=== PATIENT | female | born 1935 | race Caucasian/White ===

== ENCOUNTER 2021-05-30 13:17 | Observation (INO) ==
[2021-05-30] MEDS ORDERED: SODIUM CHLORIDE 0.9% 1,000 ML IV STA (14:10)
[2021-05-30 15:35] LABS: Basophils % 0.3 % (0.0-0.8); Eosinophils # 0.1 10*3/uL (0.0-0.87); Eosinophils % 1.4 % (0.00-10.9); Immature Granulocytes % 0.3 %; Immature Granulocytes Absolute 0.02 #; Lymphocytes # 2.4 10*3/uL (1.4-4.0); Lymphocytes % 33.9 % (21.3-54.2); Mean Corpuscular HGB Conc 31.4 GM/DL (32-36); Mean Platelet Volume 8.8 FL (9.6-12.0); Monocytes % 8.1 % (1.7-12.7); Platelet Count 242 T/CUMM (130-400); Red Blood Count 3.43 MC/CUMM (3.8-5.5); Red Cell Distribution Width 13.5 % (9.3-17.3); White Blood Count 7.1 T/CUMM (4-12)
[2021-05-30 15:50] LABS: Alanine Aminotransferase 19 U/L (13-56); Albumin 3.5 G/DL (3.4-5.0); Alkaline Phosphatase 55 U/L (45-117); Aspartate Amino Transferase 16 U/L (0-37); Bilirubin,Total < 0.39 MG/DL (0.20-1.00); Blood Urea Nitrogen 32 MG/DL (7-18); Calcium 9.2 MG/DL (8.5-10.1); Carbon Dioxide 24 MMOL/L (21-32); Estimated Glom Filtration Rate 34 ML/MIN; Glucose 99 MG/DL (74-106); Osmolality,Calculated 287.3 MOS/KG (273-304); Sodium 141 MMOL/L (136-145); Total Protein 7.1 G/DL (6.4-8.2)
[2021-05-30 18:14] LABS: Bilirubin,Urine Negative (Negative); Blood, Urine Negative (Negative); Glucose,Urine (UA) Negative (Negative); Ketones,Urine Negative (Negative); Nitrite,Urine Negative (Negative); Protein,Urine Negative; Urine Appearance Clear (Clear); Urine Color Straw (Yellow); Urine Urobilinogen 0.2 EU/DL (0.2-1.0)
[2021-05-30 18:15] LABS: Mucus,Urine Occasional /LPF (Occasional); Squamous Epithelial Cell,Urine Few /HPF (0-10)
[2021-05-30] MEDS ORDERED: DEXTROSE 50% 25 GM/50 ML VIAL IV PRN ×2 (19:50)
[2021-05-30] MEDS ORDERED: GLUCAGON 1 MG VIAL IM PRN (19:50)
[2021-05-30] MEDS ORDERED: MAGNESIUM HYDROXIDE SUSP 30 ML UDCUP PO PRN (20:26)
[2021-05-30] MEDS ORDERED: ZIPRASIDONE 20 MG CAPSULE PO PRN (20:26)
[2021-05-30] MEDS ORDERED: hydrALAZINE 20 MG/1 ML VIAL IV PRN (20:28)
[2021-05-30] MEDS: traMADol 50 MG TABLET PO PRN (22:25)
[2021-05-30] MEDS: INSULIN REGULAR 100 UNIT/ML SUBCUT SCH (23:48)
[2021-05-30] MEDS: ASPIRIN 325 MG TABLET PO SCH (23:55)
[2021-05-30] MEDS: ENOXAPARIN 40 MG/0.4 ML SYRINGE SUBCUT SCH (23:56)
[2021-05-30] MEDS: rOPINIRole 1 MG TABLET PO SCH (23:58)
[2021-05-31 05:30] LABS: Basophils % 0.3 % (0.0-0.8); Eosinophils % 0.3 % (0.00-10.9); Hematocrit 36.7 VOL% (35.7-47.0); Hemoglobin 11.7 GM/DL (12.0-16.0); Immature Granulocytes % 0.3 %; Immature Granulocytes Absolute 0.03 #; Lymphocytes # 2.7 10*3/uL (1.4-4.0); Lymphocytes % 28.4 % (21.3-54.2); Mean Corpuscular HGB Conc 31.9 GM/DL (32-36); Mean Corpuscular Volume 101.7 FL (87-102); Mean Platelet Volume 9.2 FL (9.6-12.0); Monocytes % 6.6 % (1.7-12.7); Neutrophils % 64.1 % (38.7-73.9); Platelet Count 267 T/CUMM (130-400); Red Blood Count 3.61 MC/CUMM (3.8-5.5); Red Cell Distribution Width 13.3 % (9.3-17.3); White Blood Count 9.6 T/CUMM (4-12)
[2021-05-31 05:47] LABS: Calcium 9.5 MG/DL (8.5-10.1); Osmolality,Calculated 285.3 MOS/KG (273-304); Potassium 4.6 MMOL/L (3.5-5.1); Risk Ratio 2.67; VLDL Cholesterol 24.4 MG/DL
[2021-05-31] MEDS: INSULIN REGULAR 100 UNIT/ML SUBCUT SCH ×4 (08:57→23:12)
[2021-05-31] MEDS ORDERED: FUROSEMIDE 20 MG TABLET PO SCH (09:00)
[2021-05-31] MEDS: QUEtiapine 25 MG TABLET PO SCH (10:03)
[2021-05-31] MEDS: SODIUM CHLORIDE 0.45% 1,000 ML IV SCH (10:03)
[2021-05-31] MEDS: ASPIRIN 325 MG TABLET PO SCH (10:04)
[2021-05-31] MEDS: rOPINIRole 1 MG TABLET PO SCH ×2 (10:04→21:18)
[2021-05-31] MEDS: lisinopriL 10 MG TABLET PO SCH (10:04)
[2021-05-31] MEDS: MEMANTINE 10 MG TABLET PO SCH ×2 (10:05→21:18)
[2021-05-31] MEDS: PARoxetine 20 MG TABLET PO SCH (10:05)
[2021-05-31] MEDS: ACETAMINOPHEN 325 MG TABLET PO SCH ×2 (10:09→21:17)
[2021-05-31] MEDS ORDERED: CHOLECALCIFEROL 5,000 UNIT TABLET PO SCH (12:00)
[2021-05-31] MEDS: traMADol 50 MG TABLET PO PRN (13:10)
[2021-05-31] MEDS ORDERED: QUEtiapine 100 MG TABLET PO SCH (20:00)
[2021-05-31] MEDS ORDERED: DONEPEZIL 10 MG TABLET PO SCH (20:00)
[2021-05-31] MEDS ORDERED: CETIRIZINE 10 MG TABLET PO SCH (20:00)
[2021-05-31] MEDS ORDERED: ROSUVASTATIN 20 MG TABLET PO SCH (21:00)
[2021-05-31] MEDS: CHOLECALCIFEROL 5,000 UNIT TABLET PO SCH (21:17)
[2021-05-31] MEDS: ENOXAPARIN 40 MG/0.4 ML SYRINGE SUBCUT SCH (21:17)
[2021-06-01] MEDS: SODIUM CHLORIDE 0.45% 1,000 ML IV SCH (00:40)
[2021-06-01 04:51] LABS: Basophils % 0.5 % (0.0-0.8); Eosinophils # 0.1 10*3/uL (0.0-0.87); Eosinophils % 1.7 % (0.00-10.9); Hematocrit 31.7 VOL% (35.7-47.0); Hemoglobin 10.1 GM/DL (12.0-16.0); Immature Granulocytes % 0.4 %; Immature Granulocytes Absolute 0.03 #; Lymphocytes # 2.9 10*3/uL (1.4-4.0); Lymphocytes % 36.7 % (21.3-54.2); Mean Corpuscular HGB Conc 31.9 GM/DL (32-36); Mean Corpuscular Volume 102.3 FL (87-102); Mean Platelet Volume 9.1 FL (9.6-12.0); Monocytes % 8.2 % (1.7-12.7); Neutrophils % 52.5 % (38.7-73.9); Platelet Count 240 T/CUMM (130-400); Red Cell Distribution Width 13.3 % (9.3-17.3); White Blood Count 7.9 T/CUMM (4-12)
[2021-06-01 05:15] LABS: Calcium 8.9 MG/DL (8.5-10.1); Osmolality,Calculated 279.7 MOS/KG (273-304); Potassium 4.2 MMOL/L (3.5-5.1)
[2021-06-01] MEDS: INSULIN REGULAR 100 UNIT/ML SUBCUT SCH ×3 (08:53→17:34)
[2021-06-01] MEDS ORDERED: PANTOPRAZOLE 40 MG TABLET PO SCH (09:00)
[2021-06-01] MEDS: ASPIRIN 325 MG TABLET PO SCH (09:20)
[2021-06-01] MEDS: CHOLECALCIFEROL 5,000 UNIT TABLET PO SCH (09:21)
[2021-06-01] MEDS: QUEtiapine 25 MG TABLET PO SCH (09:21)
[2021-06-01] MEDS: lisinopriL 10 MG TABLET PO SCH (09:22)
[2021-06-01] MEDS: ACETAMINOPHEN 325 MG TABLET PO SCH (09:22)
[2021-06-01] MEDS: rOPINIRole 1 MG TABLET PO SCH (09:22)
[2021-06-01] MEDS: MEMANTINE 10 MG TABLET PO SCH (09:22)
[2021-06-01] MEDS: PARoxetine 20 MG TABLET PO SCH (09:26)
[2021-06-01] MEDS ORDERED: INFLUENZA VIRUS VACCINE 0.5 ML SYRINGE IM ONE (11:33)
[2021-06-01 19:17] VITALS: BP 121/59
== END 2021-06-01 19:07 ==
LOC: N.EDINP 13:17 → N.ED 13:17 → SUATTDRO 19:50 → N.4E 20:58
PROVIDERS: ADMIT Internal Medicine; ATTEND Internal Medicine